=== PATIENT | female | born 1980 | race American Indian/Alaskan Native ===

== ENCOUNTER 2020-11-01 18:20 | Inpatient (IN) | payer MEDICAID ==
[2020-11-01] MEDS ORDERED: LIDOCAINE (2%) 20 MG/1 ML VIAL 20 ML MDV INFILTRATI ONE ×2 (18:28→18:54)
[2020-11-01] MEDS ORDERED: OXYTOCIN 10 UNIT/1 ML INJ ONE ×2 (18:37→19:20)
[2020-11-01] MEDS ORDERED: OXYTOCIN DRIP 30,000 MILLIUNITS/500 ML BAG IV ONE (18:37)
[2020-11-01] MEDS ORDERED: OXYTOCIN 10 UNIT/1 ML INJ IM PRN (18:54)
[2020-11-01] MEDS ORDERED: TERBUTALINE 1 MG/1 ML INJ SUB-Q PRN (18:54)
[2020-11-01] MEDS ORDERED: MINERAL OIL 30 ML ORAL LIQD PO PRN (18:54)
[2020-11-01] MEDS ORDERED: ePHEDrine SULFATE 50 MG/1 ML INJ IV PRN (18:54)
[2020-11-01] MEDS ORDERED: LANOLIN/ZINC/DIMETHICONE (LANSINOH) 7 GM TP PRN (18:57)
[2020-11-01] MEDS ORDERED: MAGNESIUM HYDROXIDE (MOM) ORAL LIQD UDC PO PRN (18:57)
[2020-11-01] MEDS ORDERED: diphenhydrAMINE 25 MG CAP PO PRN (18:57)
[2020-11-01] MEDS ORDERED: ONDANSETRON 4 MG/2 ML INJ IV PRN (18:57)
[2020-11-01] MEDS ORDERED: PROMETHAZINE 25 MG TAB PO PRN (18:57)
[2020-11-01] MEDS ORDERED: PROMETHAZINE 25 MG RECT SUPP PR PRN (18:57)
[2020-11-01] MEDS ORDERED: LACTATED RINGERS 1,000 ML IV SCH (19:00)
--- NOTE | 2020-11-01 19:03 | History and Physical Report ---
History of Present Illness Date of examination: 11/01/20 Date of admission: 11/01/20 18:20 Chief complaint: Contractions History of present illness: Pt is a 40 yo now at 36w3d EGA who had a shortly upon arrival to L&D. She had previously reported positive movement, regular uterine contractions, and denies LOF or vaginal bleeding. She has received care with [facility]. course was complicated by advanced maternal age. GBS negative. 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 this ) Family/Genetic History: cancer Social history: no significant social history - Obstetrical History Expected Date of Delivery: 11/26/20 (by US not c/w LMP) Actual Gestation: 36 Week(s) 3 Day(s) : 2 Para: 1 Hx # Term Pregnancies: 0 Number of Pregnancies: 1 Spontaneous Abortions: 1 Induced : 0 Number of Living Children: 1 Medications and Allergies Allergies Allergy/AdvReac Type Severity Reaction Status Date / Time No Known Allergies Allergy Unverified 11/01/20 18:27 Active Meds: Active Medications Ephedrine Sulfate (Ephedrine Sulfate 50 Mg/1 Ml Inj) 10 mg IV Q2M PRN PRN Reason: Hypotension Lactated Ringer's (Lactated Ringers) 1,000 mls @ 125 mls/hr IV DIRECT GIANCARLO Lidocaine (Lidocaine (2%) 20 Mg/1 Ml Vial 20 Ml Mdv) 20 ml INFILTRATI ONCE ONE Stop: 11/01/20 18:55 Mineral Oil (Mineral Oil 30 Ml Oral Liqd) 30 ml PO QHS PRN PRN Reason: Constipation Oxytocin (Oxytocin 10 Unit/1 Ml Inj) 10 unit IM ONCE PRN PRN Reason: Uterine Bleeding Terbutaline Sulfate (Terbutaline 1 Mg/1 Ml Inj) 0.25 mg SUB-Q ONCE PRN PRN Reason: Hyperstimulation/Hypertonicity Review of Systems All systems: negative Genitourinary: contractions, no vaginal bleeding, no leakage of fluid - Vital Signs Vital signs: Vital Signs Pulse BP 105 H 127/94 11/01/20 18:53 11/01/20 18:53 Temp Pulse Resp BP Pulse Ox 97.7 F 82 18 127/94 11/01/20 18:54 11/01/20 18:54 11/01/20 18:54 11/01/20 18:53 - Physical Exam Abdomen: Positive: soft. Negative: distention, tenderness, guarding - Obstetrical Uterine Contraction Monitor Mode: External Results All other labs normal. Assessment and Plan A: 40 yo now Active labor, now delivered. See delivery note. Advanced maternal age P: Routine care
--- NOTE | 2020-11-01 19:07 | Procedure Note ---
OB Delivery Note - Delivery Date of Delivery: 11/01/20 Surgeon: JESSICA BOSS (JUANCARLOS) Claim Adjuster: GERI APODACA (JUANCARLOS) Estimated blood loss: 200cc - Vaginal Delivery presentation: vertex Delivery position: OA Intrapartum events: labor-<37 weeks, extend. bradycardia Delivery induction: none Delivery monitor: external FHT, external uterine Route of delivery: Delivery placenta: spontaneous Delivery cord: 3 umbilical vessels Episiotomy: none Delivery laceration: other (left sulcus) Delivery repair: vicryl Anesthesia: local Delivery comments: Pt arrived on unit and expediently delivered infant, Geri Apodaca CNM in attendance. Expedited delivery due to bradycardia in the 60s. Head delivered OA, restituted ROT, shoulders followed easily. Placenta delivered spontaneously and intact. Pitocin 10U IM administered. Left sulcus laceration noted, injected 2% Lidocaine locally, repaired with 2-0 Vicryl to good hemostasis. EBL 200cc. - Infant A at 1 minute: 8 at 5 minutes: 9 Gender: Male
[2020-11-01 19:10] LABS: Mean Corpuscular HGB Conc 34 % (30-34); Mean Corpuscular Volume 92 fl (79-97); Platelet Count 212 K/mm3 (140-440); Red Blood Count 3.93 M/mm3 (3.65-5.03)
[2020-11-01 19:31] LABS: Hepatitis C Virus Antibody Non-Reactive (NonReactive)
[2020-11-01] MEDS: IBUPROFEN 600 MG TAB PO SCH (21:51)
[2020-11-01] MEDS: WITCH HAZEL/ GLYCERIN PAD TP PRN (21:51)
[2020-11-02] MEDS: IBUPROFEN 600 MG TAB PO SCH ×4 (04:29→23:34)
--- NOTE | 2020-11-02 11:18 | Progress Note ---
Assessment and Plan A: PPD1 s/p Reactive Syphilis IgG Vital signs stable Awaiting H&H P: Routine care FTA-ABS collected Anticipate discharge to home at 36 hours Subjective - Subjective Date of service: 11/02/20 Principal diagnosis: s/p Interval history: PPD1 s/p at 36.3 weeks EGA. Reactive Syphilis IgG Ab, no history of Syphilis, non-reactive RPR x2 this , no sexual activity since conc eption. Patient reports: appetite normal, voiding normally, pain well controlled, ambulating normally [place]: doing well, bottle feeding (both) Objective - Vital Signs Latest vital signs: Vital Signs Temp Pulse Resp BP BP Pulse Ox 11/02/20 07:38 98.0 F 75 18 110/62 100 11/02/20 04:41 98 F 79 18 119/78 11/02/20 00:32 98.0 F 85 18 119/64 96 11/01/20 20:40 98.2 F 69 18 135/76 99 11/01/20 20:03 78 100 11/01/20 19:58 80 98 11/01/20 19:57 142 H 68 L 11/01/20 19:53 70 99 11/01/20 19:48 75 151/89 100 11/01/20 19:45 83 147/83 11/01/20 19:43 97 H 100 11/01/20 19:38 74 145/77 100 11/01/20 19:33 77 148/80 100 11/01/20 19:28 84 156/86 100 11/01/20 19:23 84 146/74 100 11/01/20 19:18 75 141/90 100 11/01/20 19:13 77 154/75 100 11/01/20 19:08 78 142/77 11/01/20 19:03 93 H 139/62 11/01/20 18:54 97.7 F 82 18 11/01/20 18:53 105 H 127/94 Intake and Output 11/01/20 11/02/20 11/02/20 22:59 07:59 15:59 Intake Total Output Total Balance Intake: Oral Output: Urine Void Other: Total, Intake Amount Total, Output Amount Weight Estimated Blood Loss - Exam Breasts: Present: normal Abdomen: Present: soft. Absent: distention, tenderness, guarding Uterus: Present: firm, fundal height below umbilicus. Absent: bogginess, tenderness Extremities: Present: normal - Labs Labs: Abnormal lab results 11/01/20 11/01/20 Range/Units 18:50 18:50 WBC 12.4 H (4.5-11.0) K/mm3 RDW 13.0 L (13.2-15.2) % Syphilis IgG Antibody Reactive A (NonReactive)
[2020-11-02 12:04] LABS: Hematocrit 30.1 % (30.3-42.9); Hemoglobin 10.1 gm/dl (10.1-14.3)
[2020-11-02] MEDS ORDERED: BENZOCAINE/MENTHOL 20/0.5% TOP SPRAY 56 GM TP PRN (14:24)
[2020-11-02] MEDS: WITCH HAZEL/ GLYCERIN PAD TP PRN (14:38)
--- NOTE | 2020-11-02 23:14 | Discharge Summary ---
Providers - Providers Date of Admission: 11/01/20 18:20 Date of discharge: 11/03/20 Attending physician: FARTUN WESTFALL MD Primary care physician: FARTUN WESTFALL MD Hospitalization Reason for admission: active labor, IUP - , labor Delivery: Laceration: other (left sulcus) complications: none Discharge diagnosis: delivery [place] baby: male Hospital course: Pt arrived in labor at 36w3d EGA and had a . course complicated by reactive Syphilis IgG, RPR titer 1:4. Infant negative for Syphilis. Awaiting treponemal results upon discharge. Condition at discharge: Good Disposition: DC-01 TO HOME OR SELFCARE Plan - Discharge Medications Prescriptions: Ibuprofen [Motrin] 600 mg PO Q6H PRN #60 tablet PRN Reason: Pain - Provider Discharge Summary Activity: routine, no sex for 6 weeks, no heavy lifting 4 weeks, no strenuous exercise Diet: routine Instructions: routine Additional instructions: [] Smoking cessation referral if applicable(refer to patient education folder for contact #) [] Refer to [facility] Booklet Call your doctor immediately for: * Fever > 100.5 * Heavy vaginal bleeding ( >1 pad per hour) * Severe persistent headache * Shortness of breath * Reddened, hot, painful area to leg or breast * Drainage or odor from incision. * Keep incision clean and dry at all times and follow doctor's instructions regarding bathing/showering - Follow up plan Follow up: JESSICA BOSS CNM [Advanced Practice Nurse] - 14 Days (Please call office to schedule appointment in 2 weeks.)
[2020-11-03] MEDS: IBUPROFEN 600 MG TAB PO SCH ×2 (05:35→11:40)
[2020-11-03 15:42] VITALS: BP 126/82
== END 2020-11-03 18:05 | disposition home or self-care (01) | DRG 775 ==
LOC: LD 18:20 → OB 20:48
PROVIDERS: ADMIT Obstetrics & Gynecology; ATTEND Obstetrics & Gynecology
PROC: 10E0XZZ Delivery of Products of Conception, External Approach (ICD-10-PCS; principal; 2020-11-01)
DX: O60.14X0 Preterm labor third trimester with preterm delivery third trimester, not applicable or unspecified (principal); O76 Abnormality in fetal heart rate and rhythm complicating labor and delivery; Z3A.36 36 weeks gestation of pregnancy; Z20.822 Contact with and (suspected) exposure to COVID-19; Z37.0 Single live birth; Z80.9 Family history of malignant neoplasm, unspecified; O09.513 Supervision of elderly primigravida, third trimester
CPT/HCPCS: 36415; 59025; 85014; 85018; 85027; 86592; 86593; 86706; 86780; 86803; 86850; 86900; 86901; 87806; 96372; 99406; G0378; A6250; J2590; U0003